=== PATIENT | male | born 1960 ===

== ENCOUNTER 2025-06-10 10:30 | Inpatient (IN) | payer OTHER ==
[~2025-06-10] VITALS: Ht 170.2 cm; Wt 59.9 kg
[2025-06-10 11:49] VITALS: BP 124/73
[2025-06-10 12:53] LABS: RH NEGATIVE
[2025-06-16] MEDS ORDERED: METRONIDAZOLE/SODIUM CHLORIDE 500 MG/100 ML PIGGYBACK IV ONE (08:30)
[2025-06-16] MEDS ORDERED: CHLORHEXIDINE GLUCONATE 120 ML BOTTLE TOP ONE (08:30)
[2025-06-16] MEDS ORDERED: CEFTRIAXONE SODIUM 2,000 MG VIAL IV ONE (08:30)
[2025-06-16] MEDS ORDERED: ONDANSETRON HCL 2 MG/ML VIAL IV PRN (11:00)
[2025-06-16] MEDS ORDERED: MORPHINE SULFATE 2 MG,MORPHINE SULFATE 4 MG IV PRN (11:00)
[2025-06-16] MEDS ORDERED: RINGERS SOLUTION,LACTATED 1,000 ML IV SCH (11:00)
[2025-06-16] MEDS ORDERED: MORPHINE SULFATE 4 MG/ML VIAL IV PRN (11:00)
[2025-06-16] MEDS ORDERED: OxyCODONE HCL 5 MG TABLET (ROXICODONE) PO PRN (11:15)
[2025-06-16] MEDS ORDERED: MORPHINE SULFATE 4 MG/ML VIAL IV ONE ×2 (11:50→12:40)
[2025-06-16] MEDS ORDERED: ACETAMINOPHEN 500 MG GEL..CAP PO SCH (12:00)
[2025-06-16 13:51] LABS: BASO % 0.4 % (0.1-1.2); EOS # 0.02 (0.04-0.54); EOS % 0.2 % (0.7-7.0); LYMPH # 0.77 (1.18-3.74); LYMPH % 9.6 % (19.3-53.1); MEAN PLATELET VOLUME 9.60 fl (9.4-12.4); MONO # 0.55 (0.24-0.82); MONO % 6.8 % (4.7-12.5); NEUT # 6.64 (1.56-6.13); NEUT % 82.5 % (34.0-71.1); RED CELL DISTRIBUTION WIDTH 12.5 % (11.6-14.4)
[2025-06-16 14:40] LABS: BUN CREA RATIO 25.0 (7.0-25.0); CREATININE SERUM 0.71 mg/dL (0.70-1.30); GFR 112.41; GLUCOSE FASTING 136.0 mg/dL (65-100); OSMOLALITY SERUM 287.0 MOSM/KG (275-295)
[2025-06-16 16:00] VITALS: BP 160/77; O2SAT 95
[2025-06-16] MEDS ORDERED: SIMETHICONE 125 MG CAPSULE PO SCH (17:00)
[2025-06-16] MEDS ORDERED: POLYETHYLENE GLYCOL 3350 17 GM BLIST.PACK PO SCH ×2 (17:00)
[2025-06-16] MEDS ORDERED: GABAPENTIN 300 MG CAPSULE PO SCH (17:00)
[2025-06-16] MEDS ORDERED: FAMOTIDINE/PF 20 MG/2 ML VIAL IV PUSH SCH (21:00)
[2025-06-17 00:42] VITALS: BP 103/64; O2SAT 95
[2025-06-17 07:49] LABS: BASO % 0.3 % (0.1-1.2); EOS # 0.05 (0.04-0.54); EOS % 0.6 % (0.7-7.0); LYMPH # 1.19 (1.18-3.74); LYMPH % 13.8 % (19.3-53.1); MEAN PLATELET VOLUME 9.60 fl (9.4-12.4); MONO # 0.94 (0.24-0.82); MONO % 10.9 % (4.7-12.5); NEUT # 6.39 (1.56-6.13); NEUT % 73.9 % (34.0-71.1); RED CELL DISTRIBUTION WIDTH 12.8 % (11.6-14.4)
[2025-06-17 08:57] VITALS: BP 116/67; O2SAT 95
[2025-06-17 08:57] LABS: BUN CREA RATIO 15.0 (7.0-25.0); CREATININE SERUM 0.66 mg/dL (0.70-1.30); GFR 122.3; GLUCOSE FASTING 116.0 mg/dL (65-100); OSMOLALITY SERUM 285.0 MOSM/KG (275-295)
[2025-06-17] MEDS ORDERED: LACTOBACILLUS ACIDOPHILUS 1 CAP CAP PO SCH (09:00)
[2025-06-17] MEDS ORDERED: MAGNESIUM CHLORIDE 70 MG TABLET.DR PO SCH (09:00)
[2025-06-17 16:18] VITALS: BP 96/61; O2SAT 96
[2025-06-17] MEDS ORDERED: ENOXAPARIN SODIUM 40 MG/0.4 ML SYRINGE SUBCUTANEO SCH (17:00)
[2025-06-17] MEDS ORDERED: MORPHINE SULFATE 4 MG/ML VIAL IV STA (22:12)
[2025-06-17] MEDS ORDERED: MAGNESIUM SULFATE 50% 1,000 MG/2 ML VIAL IV ONE (22:15)
[2025-06-17] MEDS ORDERED: MAGNESIUM SULFATE IN WATER 2 GM/50 ML PIGGYBAG IV ONE (22:24)
[2025-06-18 01:14] VITALS: BP 146/78; O2SAT 97
[2025-06-18 06:38] LABS: BASO % 0.4 % (0.1-1.2); EOS # 0.19 (0.04-0.54); EOS % 2.5 % (0.7-7.0); LYMPH # 1.34 (1.18-3.74); LYMPH % 17.9 % (19.3-53.1); MEAN PLATELET VOLUME 9.70 fl (9.4-12.4); MONO # 0.82 (0.24-0.82); MONO % 10.9 % (4.7-12.5); NEUT # 5.09 (1.56-6.13); NEUT % 67.9 % (34.0-71.1); RED CELL DISTRIBUTION WIDTH 12.6 % (11.6-14.4)
[2025-06-18 07:12] LABS: BUN CREA RATIO 17.0 (7.0-25.0); CREATININE SERUM 0.59 mg/dL (0.70-1.30); GFR 139.19; GLUCOSE FASTING 93.0 mg/dL (65-100); OSMOLALITY SERUM 286.0 MOSM/KG (275-295)
[2025-06-18 08:00] VITALS: BP 130/76; O2SAT 98
[2025-06-18] MEDS ORDERED: PYRIDOXINE HCL 100 MG TABLET PO SCH (09:00)
[2025-06-18] MEDS ORDERED: Cyanocobalamin/Mecobalamin 1 TAB.SL SL SCH (09:00)
[2025-06-18] MEDS ORDERED: IRON FUM,PS/FOLIC/BCOMP,C NO.9 1 CAP CAPSULE PO SCH (09:00)
[2025-06-18] MEDS ORDERED: NAPH,MB-DB/K PH,MBDB 1 PKT PACKET PO NR (10:30)
[2025-06-18] MEDS ORDERED: NAPH,MB-DB/K PH,MBDB 1 PKT PACKET PO SCH (13:00)
[2025-06-18 17:22] VITALS: BP 146/66; O2SAT 97
[2025-06-19 00:26] VITALS: BP 141/69; O2SAT 98
[2025-06-19 06:21] LABS: BASO % 0.5 % (0.1-1.2); EOS # 0.27 (0.04-0.54); EOS % 4.2 % (0.7-7.0); LYMPH # 1.52 (1.18-3.74); LYMPH % 23.7 % (19.3-53.1); MEAN PLATELET VOLUME 9.70 fl (9.4-12.4); MONO # 0.62 (0.24-0.82); MONO % 9.7 % (4.7-12.5); NEUT # 3.95 (1.56-6.13); NEUT % 61.6 % (34.0-71.1); RED CELL DISTRIBUTION WIDTH 12.6 % (11.6-14.4)
[2025-06-19 06:48] LABS: BUN CREA RATIO 13.0 (7.0-25.0); CREATININE SERUM 0.67 mg/dL (0.70-1.30); GFR 120.19; GLUCOSE FASTING 96.0 mg/dL (65-100); OSMOLALITY SERUM 285.0 MOSM/KG (275-295)
[2025-06-19 08:08] VITALS: BP 148/83; O2SAT 98
[2025-06-19 16:34] VITALS: BP 145/77; O2SAT 98
[2025-06-20] VITALS: BP 156/84; O2SAT 98
[2025-06-20 08:30] VITALS: BP 147/82
[2025-06-20] MEDS ORDERED: MAGNESIUM SULFATE IN WATER 2 GM/50 ML PIGGYBAG IV NR (09:45)
[2025-06-20 09:55] LABS: BASO % 0.6 % (0.1-1.2); EOS # 0.34 (0.04-0.54); EOS % 5.2 % (0.7-7.0); LYMPH # 1.44 (1.18-3.74); LYMPH % 22.2 % (19.3-53.1); MEAN PLATELET VOLUME 9.50 fl (9.4-12.4); MONO # 0.49 (0.24-0.82); MONO % 7.6 % (4.7-12.5); NEUT # 4.11 (1.56-6.13); NEUT % 63.3 % (34.0-71.1); RED CELL DISTRIBUTION WIDTH 12.4 % (11.6-14.4)
== END 2025-06-20 14:02 | disposition home or self-care (01) | DRG 330 ==
LOC: SURH 06-16 07:00 → O/R 06-16 10:01 → SURH 06-16 10:01
PROVIDERS: ADMIT Colon & Rectal Surgery; ATTEND Colon & Rectal Surgery
PROC: 0WQF0ZZ Repair Abdominal Wall, Open Approach (ICD-10-PCS; 2025-06-16)
PROC: 0DBU0ZZ Excision of Omentum, Open Approach (ICD-10-PCS; 2025-06-16)
PROC: 0DBL0ZZ Excision of Transverse Colon, Open Approach (ICD-10-PCS; principal; 2025-06-16 07:00)
DX: K94.09 Other complications of colostomy (principal); C20 Malignant neoplasm of rectum; C78.6 Secondary malignant neoplasm of retroperitoneum and peritoneum; K43.5 Parastomal hernia without obstruction or gangrene